=== PATIENT | female | born 1970 | race Caucasian/White ===

== ENCOUNTER → 2017-11-08 | Outpatient (CLI) | payer BC ==
[~2017-11-08] MED LIST: ANTIANXIETY MED
== END | disposition home or self-care (01) ==
LOC: C.LAB 11:41
DX: E78.5 Hyperlipidemia, unspecified (principal); D50.9 Iron deficiency anemia, unspecified; Z13.1 Encounter for screening for diabetes mellitus

== ENCOUNTER → 2017-11-25 | Outpatient (CLI) | payer BC | END | disposition home or self-care (01) | LOC: C.LAB 16:58 | DX: R53.83 Other fatigue (principal) ==

== ENCOUNTER → 2018-06-12 | Outpatient (CLI) | payer BC ==
[2018-06-12 14:33] LABS: BASO ABS # 0.07 K/uL (0-0.2); EOS % 1.2 %; EOS ABS # 0.09 K/uL (0-0.5); HEMATOCRIT 40.8 % (37-47); HEMOGLOBIN 14.3 g/dL (12.0-16.0); IG# 0.01 K/uL (0.00-0.02); LYMPH % 17.9 %; LYMPH ABS # 1.32 K/uL (1.2-3.4); MEAN CELL VOLUME 87.9 fL (80-100); MEAN CORPUSCULAR HEMOGLOBIN 30.8 pg (25-34); MEAN PLATELET VOLUME 9.3 fL (7.4-10.4); MONO % 8.3 %; MONO ABS # 0.61 K/uL (0.11-0.59); NEUT % 71.5 %; NEUT ABS # 5.26 K/uL (1.4-6.5); PLATELET COUNT 196 K/uL (130-400); WHITE BLOOD COUNT 7.36 K/uL (4.8-10.8)
== END | disposition home or self-care (01) ==
LOC: C.FOODA 13:35
DX: R53.83 Other fatigue (principal); E55.9 Vitamin D deficiency, unspecified; E66.9 Obesity, unspecified

== ENCOUNTER 2019-02-23 08:36 | Observation (INO) ==
--- NOTE | 2019-02-11 10:41 | PAT Medication Instructions ---
Medication Instructions Date of Service February 11, 2019 Home Medications buspirone 30 mg PO QAM fluoxetine [Prozac] 60 mg PO QAM levothyroxine 75 mcg PO QAM Take morning of surgery With a small sip of water, OTHERWISE NOTHING TO EAT OR DRINK AFTER MIDNIGHT: buspirone 30 mg PO QAM fluoxetine [Prozac] 60 mg PO QAM levothyroxine 75 mcg PO QAM Other Notes If you have any questions please call us at [phone] or [phone] or [phone] or [phone]
--- NOTE | 2019-02-11 15:17 | Anesthesiology Consultation ---
Date of Service February 11, 2019 Assessment & Plan (1) Encounter for pre-operative examination: Chart Review Chart Review: Acceptable Risk for Surgery and Patient seen in Pre Admission Testing Consults Requested none Teaching & Discussion Pre-Anesthesia Teaching/Discussion Notes: Instructed NPO after midnight before surgery, except medications with 15 cc of water. Medication instructions provided according to the PAT guidelines. History Surgery Operation Date: 02/23/19 10:40 Proposed Procedures p Robotic Total Laparoscopic Hysterectomy - Homero Steele MD, FACOG Height/Weight Height: 5 ft 3.5 in Weight: 76.8 kg Allergies Allergy/AdvReac Type Severity Reaction Status Date / Time No Known Allergies Allergy Unknown Verified 02/04/19 08:53 Medications Home Medications Medication Instructions Recorded Confirmed Last Taken buspirone 30 mg PO QAM 02/04/19 02/04/19 Unknown fluoxetine [Prozac] 60 mg PO QAM 02/04/19 02/04/19 Unknown levothyroxine 75 mcg PO QAM 02/04/19 02/04/19 Unknown Past Medical History Medical History Anxiety Depression Hypothyroidism Past Surgical History Surgical History History of colonoscopy History of eye surgery AGE 6, MUSCULAR REPAIR. Past Anesthesia History No Hx of Anesthesia Complications and No Family Hx of Anesthesia Complications History of PONV No Motion Sickness Screening History of Motion Sickness: Yes (Amusement Park Rides, Airplanes) Social History Smoking Status: Never smoker Do You Dip or Chew Tobacco: No Hx Alcohol Use: No Alcohol Intake Frequency Comment: 0 Hx Substance Use: No substance use type: does not use Exercise / Class Metabolic Activity II 4-5 Yardwork/Stairs/Walk up hill (>10K steps per day, tries to go to gym 3x week, works with kindergarten class. Able to climb FOS. Denies CP or SOB. ) Review of Systems Patient denies chest pain, shortness of breath, dyspnea on exertion, joint pain, cough, wheezing, palpitations. +acid reflux (suspected - was on a PPI and noticed relief, but not taking anymore.) Physical Exam Vital Signs BP: 101/67 P: 64 R: 16 T: 97.3 SPO2: 97% on RA ENMT Thyromental Distance: > or= 3.5 Finger Breadths (3.5) Mallampati Class: I Neck normal visual inspection and trachea midline; neck extension not limited Respiratory normal respiratory effort Auscultation: lungs clear to auscultation bilaterally Cardiovascular Rate/Rhythm: regular rate and regular rhythm Heart Sounds: no murmur Neurologic moves all extremities Psychiatric Orientation: alert and oriented x 3 Testing Electrocardiogram Date: 02/11/19 Findings: + NSR @ (63) and + no change from (06/17/12) Laboratory Results 02/11/19 15:45 02/11/19 15:45 Blood Type A Positive 02/11/19 15:45 Antibody Screen NEGATIVE 02/11/19 15:45
[2019-02-11 16:16] LABS: Basophils # (auto) 0.04 K/uL (0-0.2); Basophils % (auto) 0.7 %; Eosinophils # (auto) 0.08 K/uL (0-0.5); Eosinophils % (auto) 1.4 %; Hematocrit (blood only) 38.8 % (37-47); Hemoglobin 13.1 g/dL (12.0-16.0); Immature Granulocytes # (auto) 0.01 K/uL (0.00-0.02); Immature Granulocytes % (auto) 0.2 %; Lymphocytes # (auto) 1.35 K/uL (1.2-3.4); Lymphocytes % (auto) 23.4 %; Mean Corpuscular Hgb Conc 33.8 g/dL (32-36); Mean Platelet Volume 10.2 fL (7.4-10.4); Monocytes # (auto) 0.38 K/uL (0.11-0.59); Monocytes % (auto) 6.6 %; Neutrophils # (auto) 3.91 K/uL (1.4-6.5); Neutrophils % (auto) 67.7 %; Platelet Count 170 K/uL (130-400); RDW Coefficient of Variation 14.2 % (11.5-14.5); RDW Standard Deviation 46.2 fL (36.4-46.3); Red Blood Count 4.41 M/uL (4.2-5.4); White Blood Count 5.77 K/uL (4.8-10.8)
[2019-02-11 16:26] LABS: BUN Creatinine Ratio 16.6 (10-20); Calcium 9.1 mg/dl (8.5-10.1); Creatinine Clr Calc Pharmacy 61.5 ml/min; Est GFR (Non-African American) 58.7; Potassium 4.3 mmol/L (3.5-5.1)
[~2019-02-23 08:36] MED LIST changes: -ANTIANXIETY MED; +CEFAZOLIN 2000MG 2,000 MG/15 ML SYR IV SCH; +CISATRACURIUM BESYLATE IV SOLN 2 MG/ML 10 ML VIAL IV ONE; +DEXAMETHASONE SOD INJ 4 MG/ML VIAL ONE; +GLYCOPYRROLATE 0.2 MG/ML VIAL ONE; +KETOROLAC 30 MG/ML VIAL ONE; +LACTATED RINGER'S 1,000 ML IV SCH; +LARYING-O-JET KIT (LTA) ONE; +LIDOCAINE HCL 2% 2 ML VIAL/AMP(20MG/ML) INFIL ONE; +LR 15ML/HR IV SCH; +MIDAZOLAM HCL 1 MG/ML 2ML VIAL ONE; +NEOSTIGMINE METHYLSULFATE 5 MG/5 ML SYR ONE; +ONDANSETRON INJ 2 MG/ML 2 ML VIAL ONE; +PHENYLEPHRINE 100MCG/ML 5ML SYR ONE; +PROPOFOL IV EMULSION 10 MG/ML 20 ML VIAL IV ONE; +ePHEDrine sulfate 50 MG/ML SYR ONE; +fentaNYL citrate 100 MCG/2 ML VIAL ONE
--- NOTE | 2019-02-23 09:54 | History & Physical Bridge Note ---
Date of Service February 23, 2019 History & Physical Bridge Note I have examined the patient, reviewed the History & Physical and in the interval since the performance of the History & Physical I have noted the following changes of clinical significance: no changes noted
[2019-02-23] MEDS ORDERED: BUPIVACAINE 0.5 % 5 MG/1 ML MPF 30ML VIAL ONE (10:05)
[2019-02-23] MEDS ORDERED: METHYLENE BLUE 0.5% 10 ML VIAL ONE (10:05)
[2019-02-23] MEDS ORDERED: ePHEDrine sulfate 50 MG/ML AMP ONE (11:04)
[2019-02-23] MEDS ORDERED: DEXAMETHASONE SOD INJ 4 MG/ML VIAL ONE (11:14)
[2019-02-23] MEDS ORDERED: TISSEEL FIBRIN SEALANT 4ML TOP ONE (11:17)
[2019-02-23] MEDS ORDERED: PROMETHAZINE HCL 12.5 MG in SODIUM CHLORIDE 0.9% 50 ML IV PRN ×2 (12:08→12:33)
[2019-02-23] MEDS ORDERED: KETOROLAC 30 MG/ML VIAL IV PRN (12:08)
[2019-02-23] MEDS ORDERED: ONDANSETRON INJ 2 MG/ML 2 ML VIAL IV PRN ×2 (12:08→12:33)
[2019-02-23] MEDS ORDERED: MAGNESIUM HYDROXIDE SUSP 30 ML UDC PO PRN (12:08)
[2019-02-23] MEDS ORDERED: SIMETHICONE 80 MG CHEW PO PRN (12:08)
[2019-02-23] MEDS ORDERED: ZOLPIDEM TARTRATE 5 MG TAB PO PRN (12:08)
[2019-02-23] MEDS ORDERED: MEPERIDINE HCL 50 MG/ML CARP IV PRN (12:08)
[2019-02-23] MEDS ORDERED: PROMETHAZINE HCL 25 MG in SODIUM CHLORIDE 0.9% 50 ML IV PRN (12:08)
[2019-02-23] MEDS ORDERED: OXYCODONE/ACETAMINOPHEN 5mg/325mg TAB PO PRN ×2 (12:08)
[2019-02-23] MEDS ORDERED: ACETAMINOPHEN 325 MG TAB PO PRN (12:08)
[2019-02-23] MEDS ORDERED: BISACODYL 10 MG SUPP PR PRN (12:08)
--- NOTE | 2019-02-23 12:15 | Operative Report ---
Post Operative Report Pre & Post Diagnosis Operation Date: 02/23/19 09:50 Pre-Op Diagnosis: Abnormal Menses, Uterine Enlargement Post-Op Diagnosis: Abnormal Menses, Uterine Enlargement Procedure Operation Date: 02/23/19 09:50 Actual Procedures p Robotic Total Laparoscopic Hysterectomy, Bilateral Salpingectomy, Cystoscopy - Homero Steele MD, FACOG Surgeon Homero Steele MD, FACOG Or Assistant Dr. South Estimated Blood Loss 10 Findings Consistent with Post-Op Diagnosis Specimens Uterus bilateral fallopian tubes cervix Description of Procedure Patient given a general anesthetic prepped and draped in dorsal lithotomy position in [facility] bladder drained with a Doe catheter V care attached to her uterus in the usual fashion glove change and a supraumbilical incision made with scalpel using Buckner technique we did a direct cutdown into the peritoneal cavity blunt-tipped Buckner trocar placed balloon inflated to stabilize the port CO2 gas used to insufflate the abdomen Findings upper abdomen normal no sign of visceral organ injury deep Trendelenburg position obtained there were no significant adhesions the uterus was enlarged by a fibroid anteriorly pushing into the broad ligament on the right side. Pictures taken for documentation adnexa appeared within normal limits small simple cyst on the left ovary. 3 robotic arms were then placed to on the right side one on the left and a left upper quadrant accessory port platelets. Robot docked on #1 was the monopolar skyla in arm #2 was the bipolar [place] arm #3 was the progress. We identified the course of the ureter on each side then remove the fallopian tubes on each side through the accessory port. Blood supply distal to the left ovary was coagulated and cut round ligament was coagulated and cut uterine vessels skeletonized and uterine vessels then coagulated and cut. Bladder flap sharply dissected away The process in the right was slightly more complicated due to fibroid but I was able to quite a bit the blood supply distal to the right ovary. At this stage is able to coagulate the round ligament and cut through this we then exchanged the pro-grasp for a tenaculum robotic in arm #3 stable to grasp the fibroid elevated medially and superiorly away from it and then actually to the point where was it able to identify the uterine vessels beneath this. We fully dissected the bladder flap away were able to coagulate the vessels of the uterine vessels and cut these were well away from the right ureter At this stage we had the blood supply colpotomy was made anteriorly initially with the monopolar skyla and then continue completely we were able to pull the specimen into the vagina and remove it in next sponge and a glove was placed in the vagina to maintain pneumoperitoneum repair of instruments to exchange our #1 became the Francois needle corporate driver arm #2 became the Cobra. 12 inch to low 90-day V lock suture was then placed through the accessory port cuff was then closed from left to right back right to left ensuring at least 1 cm full-thickness bites of vaginal mucosa suture was cut so there was no tail needle was removed the excess report after generous irrigation and suction Tisseel was applied for hemostasis at the pedicles Cystoscopy revealed a normal bladder good strong jets of urine from both the right and left openings no damage to the bladder no stitches to the bladder no pathology Cystoscope removed and a new Doe catheter was placed the sponge and a glove had been removed from the vagina robot was undocked and removed incisions all injected with 0.5% Marcaine gas allowed to escape fascia closed carefully with 0 Vicryl in the umbilical and left upper quadrant incisions. 4-0 subcuticular Monocryl closures and Dermabond applied sponge management counts correct I attest to the content of the Intraoperative Record and any orders documented therein. Any exceptions are noted below.
[2019-02-23] MEDS ORDERED: HYDROmorphone INJ 1 MG/ML SYRINGE ONE (12:33)
[2019-02-23] MEDS ORDERED: ATROPINE SULFATE 0.1 MG/ML 10ML SYR IV PRN (12:33)
[2019-02-23] MEDS ORDERED: NALOXONE HCL 0.4 MG/1 ML VIAL/CARP IV PRN (12:33)
[2019-02-23] MEDS ORDERED: LABETALOL HCL IV 5 MG/ML 20ML IV PRN (12:33)
[2019-02-23] MEDS ORDERED: FLUMAZENIL 0.1 MG/1 ML 10 ML VIAL IV PRN (12:33)
[2019-02-23] MEDS ORDERED: HYDROmorphone INJ 1 MG/ML SYRINGE IV PRN (12:33)
[2019-02-23] MEDS ORDERED: ePHEDrine sulfate 50 MG/ML AMP IV PRN (12:33)
--- NOTE | 2019-02-23 12:52 | Anesthesiology Progress Note ---
Date of Service February 23, 2019 Anesthesia Post Procedure Vital Signs Vital Signs: Temp Pulse Pulse Resp BP Pulse Ox 02/23/19 12:45 73 13 100/65 95 02/23/19 12:35 72 17 107/67 100 02/23/19 12:25 79 15 116/67 100 02/23/19 12:15 36.6 C 93 H 16 147/86 H 100 02/23/19 08:55 36.8 C 60 18 115/60 96 Pain Intensity Abdomen: Pain Intensity: 3 Notes Mental Status: alert / awake / arousable Patient Amnestic to Procedure: Yes Nausea / Vomiting: adequately controlled Pain: adequately controlled Airway Patency, RR, SpO2: stable & adequate BP & HR: stable & adequate Hydration State: stable & adequate Anesthetic Complications: no major complications apparent
[2019-02-23] MEDS ORDERED: LACTATED RINGER'S 1,000 ML IV SCH (13:30)
[2019-02-23] MEDS: IBUPROFEN 600 MG TAB PO PRN ×2 (14:01→20:23)
[2019-02-23 20:12] LABS: Hematocrit (blood only) 38.4 % (37-47); Hemoglobin 13.1 g/dL (12.0-16.0)
[2019-02-23] MEDS ORDERED: DOCUSATE SODIUM 100 MG CAP PO SCH (21:00)
--- NOTE | 2019-02-25 19:35 | Discharge Summary ---
Date of Service February 25, 2019 Patient had a total laparoscopic hysterectomy on February 23, 2017 this was done for menorrhagia and an enlarged uterus the patient's course in hospital was unremarkable and on the same day of surgery a few hours after surgery she may criteria at that time she was ambulating tolerating an oral diet voiding well and had no extremity pain Physical exam her vital signs were stable she was afebrile she had no bleeding Impression and plan postop day 0 from total laparoscopic hysterectomy sent home discharge instructions were reviewed and patient was told to follow-up with Dr. Steele in the office Admission Exam (Per Admitting) Constitutional WD/WN, vitals as above Cardiovascular RRR, no murmur, no edema Gastrointestinal (Abdomen) normal bowel sounds, soft, nontender, no hepatosplenomegaly Discharge Data Procedures Performed Operation Date: 02/23/19 09:50 Actual Procedures p Robotic Total Laparoscopic Hysterectomy, Bilateral Salpingectomy, Cystoscopy - Homero Steele MD, FACOG s Cystoscopy(Not Applicable) - Homero Steele MD, FACOG
== END 2019-02-23 20:58 | disposition home or self-care (01) ==
LOC: 4N 08:36 → ASU 08:36